=== PATIENT | male | born 1995 | race Two or more races ===

== ENCOUNTER 2020-05-17 13:03 | Emergency (ER) | payer SELFPAY ==
[~2020-05-17] VITALS: Ht 165.1 cm; Wt 65.8 kg
--- NOTE | 2020-05-17 13:12 | NUR ---
silvestre, from street, admits on taking heroin and unknown amount of xanax. PT ASLEEP, EASILY AWAKEN BY PAINFUL STIMULI & WILL GO BACK TO SLEEP. AWAITING EVAL BY [facility]. PLACED ON MANAGER OF CLINICAL, SR. SMITH @ & CONT TO MONITOR.
--- NOTE | 2020-05-17 15:20 | NUR ---
Patient is resting comfortably in bed with eyes closed. Easily aroused. VSS
--- NOTE | 2020-05-17 17:37 | NUR ---
Patient is resting comfortably in bed with eyes closed. Easily aroused. VSS. awaiting ride home.
[2020-05-17 19:19] VITALS: BP 110/78
--- NOTE | 2020-05-17 19:19 | NUR ---
Patient discharged to home in stable condition. Written and verbal after care instructions given. Patient verbalizes understanding of instruction.
== END 2020-05-17 19:20 | disposition home or self-care (01) ==
LOC: ER 13:05
DX: F19.10 Other psychoactive substance abuse, uncomplicated (principal)
CPT/HCPCS: 82962-TC